=== PATIENT | male | born 1950 | race Caucasian/White ===

== ENCOUNTER 2019-02-01 08:28 | Day surgery (SDC) | payer MEDICARE, BC ==
[~2019-02-01 08:28] MED LIST: CEFAZOLIN 2 Gram 2 GM/50 ML BAG IVPB ONE; CELECOXIB 100 MG CAPSULE PO ONE; FAMOTIDINE 20MG TABLET PO ONE; MECLIZINE 25 MG TABLET PO ONE; METOCLOPRAMIDE 10 MG TABLET PO ONE; VANCOMYCIN 1GM/200ML PREMIX 1 GM/200 ML PIGGYBACK IVPB ONE
[2019-02-01] MEDS ORDERED: ROPIVACAINE HCL (NAROPIN) /PF 5MG/ML 20ML VIAL IV ONE (08:29)
[2019-02-01] MEDS ORDERED: LIDOCAINE 2% MDV (20MG/ML) 20ML VIAL IV ONE (08:29)
[2019-02-01] MEDS ORDERED: FLUMAZENIL 1MG/10ML VIAL IV ONE (08:29)
[2019-02-01] MEDS ORDERED: MIDAZOLAM HCL 2MG/2ML VIAL IV ONE (08:29)
[2019-02-01] MEDS ORDERED: PROPOFOL 10 MG/ML VIAL IV ONE (08:29)
[2019-02-01] MEDS ORDERED: DEXAMETHASONE 4 MG/ML 1ML VIAL IVP ONE (08:29)
[2019-02-01] MEDS ORDERED: RINGERS SOLUTION,LACTATED 1,000 ML IV ONE ×3 (09:35→12:45)
[2019-02-01 11:49] LABS: ABO GROUP A; ANTIBODY SCREEN NEGATIVE (NEGATIVE); RH TYPE POSITIVE
[2019-02-01] MEDS ORDERED: TRANEXAMIC ACID 1,000 MG/10 ML ML IV ONE (12:09)
[2019-02-01] MEDS ORDERED: BUPIVACAINE 0.5% W/EPI MPF 30 ML VIAL SQ ONE (12:09)
[2019-02-01] MEDS ORDERED: TRANEXAMIC ACID 1,000 MG/10 ML ML IU ONE (12:09)
[2019-02-01] MEDS ORDERED: ACETAMINOPHEN W/ CODEINE 300MG/60MG TABLET PO PRN ×2 (13:15)
[2019-02-01] MEDS ORDERED: NALOXONE 0.4 MG/1 ML VIAL IVP PRN (13:15)
[2019-02-01] MEDS ORDERED: AL HYDROX/MAG HYDROX 30ML UD PO PRN (13:15)
[2019-02-01] MEDS ORDERED: DIPHENHYDRAMINE HCL 25 MG CAPSULE PO PRN (13:15)
[2019-02-01] MEDS ORDERED: BISACODYL 10 MG SUPP RC PRN (13:15)
[2019-02-01] MEDS ORDERED: KETOROLAC 30 MG/ML VIAL IVP PRN (13:15)
[2019-02-01] MEDS ORDERED: ACETAMINOPHEN 325 MG TAB PO PRN (13:15)
[2019-02-01] MEDS ORDERED: TRAMADOL HCL 50 MG TABLET PO PRN (13:15)
[2019-02-01] MEDS ORDERED: ZOLPIDEM TARTRATE 5 MG TABLET PO PRN (13:15)
[2019-02-01] MEDS ORDERED: HYDROMORPHONE HCL 2 MG/ML VIAL IM PRN (13:15)
[2019-02-01] MEDS ORDERED: MAGNESIUM HYDROXIDE 30 ML UDC PO PRN (13:15)
[2019-02-01] MEDS ORDERED: HYDROCODONE/APAP 10/325 TABLET PO PRN (13:15)
[2019-02-01] MEDS ORDERED: ONDANSETRON HCL IV 4 MG/2 ML VIAL IVP PRN (13:15)
[2019-02-01] MEDS ORDERED: NITROGLYCERIN 0.4MG SL TABLET #25 BTL SL PRN (14:19)
[2019-02-01] MEDS: POTASSIUM CHLORIDE/D5-0.9%NACL 20 MEQ/1,000 ML BAG IV SCH ×2 (17:19→21:09)
--- NOTE | 2019-02-01 17:23 | Rehab Evaluation ---
Patient Information - Patient Information Diagnosis: R Knee DJD Ordered Treatment: PT Evaluate and Treat Status: Initial Evaluation Surgery: Yes (R knee TKA) Date of Surgery: 02/01/19 Past Medical/Surgical Hx: PAST MEDICAL/SURGICAL HISTORY Surgery to Affected Area? Yes Recent Surgery? Past Surgical History C SCOPE -2018 CARDIAC STENTS LAST 2 2016 BIG TOE REATTACHMENT AGE 7 CARDIAC CATHS PMH - Respiratory Hx Respiratory Disorders Yes Hx Bronchitis Yes: NOTHING RECENT Hx Sleep Apnea Yes Hx of CPAP No Hx of SOB Yes: AT TIMES WITH EXERTION Hx of Oxygen Therapy No Comment: PULMONARY FIBROSIS DX'D 4 YEARS AGO PMH - Cardiovascular Hx Cardiovascular Disorders Yes Hx Abnormal EKG Yes Hx Cardiac Catheterization Yes Hx Heart Attack Yes: 2000 Hx Coronary Artery Disease Yes Hx Coronary Stent Yes: X'S 3 TOTAL 2000 AND 2015 Exercise Tolerance Good PMH - Neuro Hx Neurological Disorders No PMH - GI Hx Gastrointestinal Disorders Yes Hx Gastroesophageal Reflux Yes: CONTROLLED WITH MEDS PMH - Hx Genitourinary Disorders Yes Hx Bladder Problem Yes: FREQUENCY PMH - Endocrine Hx Endocrine Disorders No PMH - Musculoskeletal Hx Musculoskeletal Disorders Yes Hx Arthritis Yes: ALL OVER Hx Gout Yes: HX OF PMH - Psych Hx Psychiatric Problems No PMH - Hematology/Oncology Hx Hematology/Oncology Yes Disorders Hx Bruising Yes: BRUISES EASILY Premorbid Status: Detail (The patient was independent with all mobility prior to surgery.) Social History: Detail (The patient lives with spouse in a mobile home with 5 steps at the enterance with one hand rail.) Precautions: [place], Fall, Other (WBAT on the R LE.) - Time With Patient Total Time Spent With Patient (Min): 30 Treatment Procedures: Detail (Initial Evaluation, low complexity) Subjective Information - Subjective Information Per Patient (The patient had minimal complaints of R knee pain.) Objective Data - Mental Status Patient Orientation: Oriented x3 - Visual Perception Appears within normal limits for therapeutic activities - ROM Not within normal limits (The patient's R knee AROM is limited s/p surgery. All other AROM is WNL.) - Strength/Tone Not within normal limits (The patient's LE strength was not formally tested however was functional.) - Bed Mobility Independent (The patient was independent with supine to and from sit transfer and scooting up in bed.) - Transfers Independent (The patient is independent with sit to and from stand transfer.) - Balance Balance Sitting: Good Balance Standing: Good - Sensation Intact - Gait Detail (The patient ambulated on front wheeled walker a distance of 60 feet x 1 WBAT on the R LE with supervision for safety.) Therapy Assessment - Therapy Assessment Detail (The patient was independent with bed mobility and transfers and required supervision for safety. Anticipate the patient will met inpatient goals in one to two sessions.) Problem List - Problem List Physical Therapy Problem List: Detail (Decreased R knee AROM and decreased R LE strength) Goals - Goals Physical Therapy Goals: 1) The patient will ambulate on stairs with supervision using proper technique. 2) The patient will be independent with TKA HEP Prognosis - Prognosis Good Plan - Plan Physical Therapy Plan: PT 1-2 sessions for gait training on stairs and instruction in HEP.
[2019-02-01] MEDS: HYDROCODONE/APAP 10/325 TABLET PO PRN (18:24)
[2019-02-01] MEDS: OFEV 100 MG PO SCH ×2 (18:25→21:09)
[2019-02-01] MEDS: VANCOMYCIN 1GM/200ML PREMIX 1 GM/200 ML PIGGYBACK IVPB SCH (21:09)
[2019-02-01] MEDS: DOCUSATE SODIUM 100 MG CAPSULE PO SCH ×2 (21:09→21:16)
[2019-02-02] MEDS: POTASSIUM CHLORIDE/D5-0.9%NACL 20 MEQ/1,000 ML BAG IV SCH ×2 (05:17→15:11)
[2019-02-02] MEDS: ASPIRIN 81 MG TABEC PO SCH ×2 (06:10→09:55)
[2019-02-02] MEDS: ATORVASTATIN 80MG PO SCH ×2 (06:12→09:56)
[2019-02-02] MEDS: OFEV 100 MG PO SCH ×2 (06:12→09:57)
[2019-02-02 06:29] LABS: HEMATOCRIT 36.5 % (42.0-52.0); HEMOGLOBIN 11.8 gm/dl (14.0-18.0)
[2019-02-02 06:49] LABS: BLOOD UREA NITROGEN 18 mg/dL (8-23); CREATININE 0.7 mg/dL (0.7-1.2); EST GLOMERULAR FILTRATION RATE > 60 mL/min; GLUCOSE,RANDOM 117 mg/dL (74-109)
[2019-02-02] MEDS ORDERED: OMEPRAZOLE 20 MG PO SCH (07:00)
--- NOTE | 2019-02-02 08:03 | Rehab Evaluation ---
Patient Information - Patient Information Diagnosis: R Knee DJD Ordered Treatment: OT Evaluate and Treat Status: Initial Evaluation Surgery: Yes (R knee TKA) Date of Surgery: 02/01/19 Past Medical/Surgical Hx: PAST MEDICAL/SURGICAL HISTORY Surgery to Affected Area? Yes Recent Surgery? Past Surgical History C SCOPE -2018 CARDIAC STENTS LAST 2 2016 BIG TOE REATTACHMENT AGE 7 CARDIAC CATHS PMH - Respiratory Hx Respiratory Disorders Yes Hx Bronchitis Yes: NOTHING RECENT Hx Sleep Apnea Yes Hx of CPAP No Hx of SOB Yes: AT TIMES WITH EXERTION Hx of Oxygen Therapy No Comment: PULMONARY FIBROSIS DX'D 4 YEARS AGO PMH - Cardiovascular Hx Cardiovascular Disorders Yes Hx Abnormal EKG Yes Hx Cardiac Catheterization Yes Hx Heart Attack Yes: 2000 Hx Coronary Artery Disease Yes Hx Coronary Stent Yes: X'S 3 TOTAL 2000 AND 2015 Exercise Tolerance Good PMH - Neuro Hx Neurological Disorders No PMH - GI Hx Gastrointestinal Disorders Yes Hx Gastroesophageal Reflux Yes: CONTROLLED WITH MEDS PMH - Hx Genitourinary Disorders Yes Hx Bladder Problem Yes: FREQUENCY PMH - Endocrine Hx Endocrine Disorders No PMH - Musculoskeletal Hx Musculoskeletal Disorders Yes Hx Arthritis Yes: ALL OVER Hx Gout Yes: HX OF PMH - Psych Hx Psychiatric Problems No PMH - Hematology/Oncology Hx Hematology/Oncology Yes Disorders Hx Bruising Yes: BRUISES EASILY Premorbid Status: Detail (The patient was independent with all mobility, meal prep, laundry, home mgmt and yard work prior to surgery.) Social History: Detail (The patient lives with spouse and 8 year old grandson in a mobile home with 5 steps, a deck and 1 step at the entrance with one hand rail. He has a tub/shower combination and his tub has a step on the outside. He has a shower seat but has not tried it to see if it will work. He has a slightly elevated toilet with a riser. No grab bars are present in the bathroom. He has a 2 wheeled walker, crutches and a straight cane.) Precautions: [place], Fall, Other (WBAT on the R LE.) - Time With Patient Total Time Spent With Patient (Min): 40 Treatment Procedures: Detail (OT eval low complexity) Subjective Information - Subjective Information Per Patient Objective Data - Pain Pain Present: No (Pt reports no pain.) - Mental Status Patient Orientation: Oriented x3 - Visual Perception Appears within normal limits for therapeutic activities - ROM Within normal limits (Deion UE AROM WNL) - Strength/Tone Within normal limits (Deion UE strength WNL) - Coordination Appears within normal limits for therapeutic activities - Bed Mobility Independent (Ind with supine to sit) - Transfers Independent (Ind with sit to stand from EOB) - Balance Balance Sitting: Good Balance Standing: Good - Sensation Intact - Gait Detail (Pt ambulating in room with 2 wheeled walker and supervision) - ADL's/IADL's Detail (Pt educated and able to demonstrate learning of modified LE dressing techniques including doffing slipper sock and briefs and donning right mela sock (with assist), socks (with assist to start over toe due to foot numbness), boxer shorts, PJ bottoms and tennis shoes. Reviewed kitchen, shower, laundry safety a nd modifications, pt able to verbalize understanding.) Therapy Assessment - Therapy Assessment Detail (Pt is Ind with modified LE dressing techniques.) Problem List - Problem List Physical Therapy Problem List: Detail (Decreased R knee AROM and decreased R LE strength) Occupational Therapy Problem List: Detail (No current IP OT problems identified.) Goals - Goals Physical Therapy Goals: 1) The patient will ambulate on stairs with supervision using proper technique. 2) The patient will be independent with TKA HEP Occupational Therapy Goals: No current IP OT goals identified. Prognosis - Prognosis Good Plan - Plan Physical Therapy Plan: PT 1-2 sessions for gait training on stairs and instruction in HEP. Occupational Therapy Plan: No further IP OT recommended. Thank you for this referral.
--- NOTE | 2019-02-02 08:20 | Operative Note ---
DATE OF SURGERY: 02/01/2019 PREOPERATIVE DIAGNOSIS: End-stage arthrosis of the right knee. POSTOPERATIVE DIAGNOSIS: End-stage arthrosis of the right knee. OPERATION: Cemented right total knee arthroplasty using [employer] II components with a size 6 cobalt chrome femur, a size 5 stemmed tibia baseplate, a 9 mm lipped tibial insert, and a 35 mm all-plastic patella. STAFF SURGEON: Carlton Nicholson MD ANESTHESIA: Spinal. PREPARATION: Chloraprep. INDIVIDUAL CONSIDERATIONS: None. WORKER'S COMPENSATION CLAIMS EXAMINER: Mrs. Katherine Webb PROCEDURE: The patient was taken to the operating room, placed supine on the operating room table. Had a successful induction of a spinal anesthetic. The right lower extremity was prepped and draped in the usual fashion. The limb was elevated and tourniquet was inflated to 250 mmHg. The patient had a midline approach to the knee. Sharp dissection carried down through skin and subcutaneous tissue. Small veins were coagulated with a Bovie. A medial arthrotomy was performed. The patella was everted and the knee was flexed. The patient had exposed bone in the medial and patellofemoral compartment with bone loss medially. Fat pad was resected, ACL was sacrificed, and provisional anterior meniscectomies were performed. The capsule was released from the medial proximal tibia. The initial femoral photogrammetry airplane pilot hole was then made freehand. The intramedullary femoral cutting jig was placed. It was cut in 7.0 degrees of valgus and adjusted for rotation and secured with pins for a 10 mm resection. The initial transverse cut was then made. The skin guide was placed in the anterior and posterior photogrammetry airplane pilot holes. It was found that a size 6 would be appropriate. The anterior and posterior cuts followed by chamfer cuts were made. Osteophytes removed, and a size 6 trial was placed and found to fit well. The tibia was brought forward, and the remainder of the meniscal remnants removed with a Bovie. The extraarticular tibial cutting jig was placed. It was cut in neutral with a 3-degree AP slope. It was set for a 9 mm resection keyed off the high lateral side and secured with pins. When cutting the tibia, care was taken to preserve the PCL insertion on the tibia. Large osteophytes were removed, and I could fit a size 5. It was adjusted for rotation and secured with pins. With a 9 mm trial and femoral trial, there was excellent motion and stability. Ligamentous balance and rotation alignment were thought to be normal. Femoral photogrammetry airplane pilot holes were impacted and the tibial keel stamp was impacted, and these trial components were removed. The tourniquet was let down briefly to get bleeders posteriorly and then placed back up again. The patient had a very thick patella and roughly 9 mm of bone was removed freehand. I could easily fit a 35 patella, and the 3 photogrammetry airplane pilot holes were then drilled. The knee was then thoroughly irrigated out with pulsatile Betadine and saline to remove any visual or palpable debris. Bony surfaces were then dried. A size 5 stemmed tibia baseplate was cemented into place followed by impaction of the 9 mm lipped tibial insert followed by cementing in the size 6 cobalt chrome femur followed by cementing in the 35 mm all-plastic patella. The implant surfaces were compressed, excess cement was removed. After the cement had set, there was excellent motion and stability. Ligamentous balance, rotation alignment, and patellofemoral tracking were normal. No lateral release was required. Again thorough irrigation. Tourniquet was let down. Hemostasis was obtained with a Bovie. The skin, periosteum, and subcu were infiltrated with 30 mL of 0.5% Marcaine with epinephrine. The capsule was then closed with a running #2 quill, subcu was closed with running 0 quill, skin was closed with sarah. Then 1 g of tranexamic acid was mixed with 40 mL of saline and injected into the knee through a sterile 18-gauge needle, and a sterile bulky compressive MORGAN- type dressing was applied. The patient tolerated the procedure well. Needle and sponge counts were correct. Estimated blood loss was minimal. The patient was taken back to recovery in good condition. There were no complications. [facility]
--- NOTE | 2019-02-02 09:34 | Physical Therapy Tx Note ---
Physical Therapy Tx Note - Treatment Note Tolerated: Good Total Time Spent With Patient: 25 Physical Therapy Tx Note: Detail (Patient reported that he didn't have a lot of pain in his R knee this morning. He ambulated 200+ feet over smooth surfaces with a front-wheeled walker independently. Patient has a foot drop and has difficulty with clearing his foot at times. Sensation was tested and patient said he could feel on the lateral portion of his lower leg but was unable to feel on the medial portion of his lower R leg. Proprioception was intact, and patient was able to move his R ankle in all motions except dorsiflexion. Patient completed stair training over 10 stairs and demonstrated good technique with supervision. He was aware to clear his R foot when going up stairs. His HEP was reviewed in bed and the patient demonstrated good technique. Patient was left in the bed with his call light and bedside table within reach. The nursing staff was notified of his position.) Physical Therapy Problem List: Detail (Decreased R knee AROM and decreased R LE strength) Physical Therapy Goals: 1) The patient will ambulate on stairs with supervision using proper technique GOAL MET. 2) The patient will be independent with TKA HEP GOAL MET Physical Therapy Plan: The patient has met all inpatient therapy goals at this time.
[2019-02-02] MEDS: VANCOMYCIN 1GM/200ML PREMIX 1 GM/200 ML PIGGYBACK IVPB SCH (09:55)
[2019-02-02] MEDS: DOCUSATE SODIUM 100 MG CAPSULE PO SCH (09:55)
[2019-02-02] MEDS ORDERED: FERROUS SULFATE 325 MG TAB PO SCH (10:00)
[2019-02-02] MEDS ORDERED: RIVAROXABAN 10 MG TABLET PO SCH (10:00)
[2019-02-02] MEDS: HYDROCODONE/APAP 10/325 TABLET PO PRN (13:16)
== END 2019-02-02 15:14 | disposition home health service (06) ==
LOC: SUR 08:28 → MEDSURG 14:17 → SUR 02-02 15:14
PROVIDERS: ATTEND Orthopaedic Surgery
DX: M17.11 Unilateral primary osteoarthritis, right knee (principal); E78.00 Pure hypercholesterolemia, unspecified; J84.10 Pulmonary fibrosis, unspecified; I25.2 Old myocardial infarction; I25.10 Atherosclerotic heart disease of native coronary artery without angina pectoris; K21.9 Gastro-esophageal reflux disease without esophagitis; Z95.5 Presence of coronary angioplasty implant and graft
CPT/HCPCS: 27447; 01402; 64447; 85018; 85014; 80048; 86900; 86901; 86850; 76942; C1776 ×2; J1885; J0690; J3490 ×2; J2795; J3370 ×2; J3480; J7120